=== PATIENT | female | born 1990 | race Caucasian/White ===

== ENCOUNTER 2021-07-06 14:59 | Emergency (ER) | payer OTHER, SELFPAY ==
[2021-07-06 15:00] VITALS: BP 145/98; PULSE 144; RESP 18; TEMP 37.1; O2SAT 98; BMI 34.5
--- NOTE | 2021-07-06 15:39 | EKG12_ITS ---
Test Reason : Blood Pressure : / mmHG Vent. Rate : 109 BPM Atrial Rate : 109 BPM P-R Int : 122 ms QRS Dur : 080 ms QT Int : 326 ms P-R-T Axes : 054 020 008 degrees QTc Int : 439 ms Sinus tachycardia Otherwise normal ECG Confirmed by FARHAT ARANDA, ELBERT ([id number]), editor [employer] EVON KHAN ([id number]) on 07/08/2021 10:05:24 A M Referred By: YAYA Confirmed By:SAIRA DOUGHERTY MD
--- NOTE | 2021-07-06 15:40 | CT_ITS ---
STUDY: CT BRAIN WITHOUT CONTRAST REASON FOR EXAM: Female, 30 years old. Change in Mental Status RADIATION DOSAGE (If Supplied By Facility): CTDIvol = ( 44.99 ) mGy, DLP = ( 745.49 ) mGycm TECHNIQUE: Transaxial CT imaging of the brain was performed without administration of intravenous contrast material. Individualized dose optimization techniques were used for this CT. COMPARISON: No relevant priors. FINDINGS: Normal soft tissue structures. Normal calvarium. Normal size ventricles and extra-axial spaces for the patient''s age. Normal white matter tracts of the cerebral hemispheres. Normal basal ganglia and thalami. Normal brainstem. Normal cerebellum. There is no intracranial hemorrhage. There are no findings of an acute ischemic infarction. Normal visualized paranasal sinuses. CT/Brain/Head without Contrast IMPRESSION: Normal unenhanced CT scan of the brain. Electronically Signed: Nicola Hanson MD at 16:35 EDT , Service support ,
--- NOTE | 2021-07-06 15:42 | EX.ED.VIS.PS ---
HPI <Dr. Joe Rojas MD - Last Filed: 07/06/21 16:57> HPI - Psych History of Present Illness Chief Complaint: Mental Health Informant: patient and spouse/S.O. Narrative Narrative: Patient has a history of psychosis around 2 years ago, she was delusional concerning grandiosity, and then somehow was triggered and started having thoughts of killing her son. She was treated with risperidone, had been in remission. Recently diagnosed with bipolar disorder, has not started any treatment yet. Recently left the state to go visit family in [place], she always has some issues sleeping but there is started becoming a lot worse, where she was only sleeping 2 to 3 hours, she had trouble getting to sleep and then trouble getting back to sleep if she woke up in the middle of the night, and has been acting unusual. Patient is very nonspecific when she is tries to describe her symptoms; she states I am doing my best, just trying to use my coping mechanisms... Takes a deep breath and closes her eyes, and again is very vague and trying to describe what is going on. She denies any hallucinations. Her states that while they were in [place], they went to see someone who did not think she was acutely manic, prescribed her risperidone which she has been taking for 2 days now, has not seemed to help anything including her sleep, and so they came back to [place] to come here and seek further treatment; about 2 hours before arrival, while on the road a song triggered the patient and she started talking like she is now, saying that she may be unsafe to be around herself or others which she also told the triage nurse here. PFSH <Dr. Joe Rojas MD - Last Filed: 07/06/21 16:57> [facility], [facility] Medical History (Updated 07/07/21 @ 00:[address] Clemente Uriostegui MD) Bipolar disorder History of psychosis Home Medications lamotrigine 150 mg PO DAILY 07/06/21 [History Last Taken Unknown] risperidone 2 mg PO QHS 07/06/21 [History Last Taken Unknown] Allergy/AdvReac Type Severity Reaction Status Date / Time haloperidol [From Haldol] AdvReac PT UNSURE Verified 07/06/21 15:04 OF REACTION Social History (Updated 07/06/21 @ 15:[address] Joe Rojas MD) Smoking Status: Never smoker alcohol intake: never substance use type: does not use ROS <Dr. Joe Rojas MD - Last Filed: 07/06/21 16:57> ROS ED Constitutional Constitutional ED: Denies chills or fever(s) Eyes Eyes: Denies change in vision or diplopia ENT ENT ED: Denies rhinorrhea or sore throat Cardiovascular Cardiovascular: Denies chest pain or palpitations Respiratory/Chest Respiratory/Chest: Denies cough or dyspnea Gastrointestinal Gastrointestinal: Denies abdominal pain, diarrhea, nausea or vomiting Genitourinary Genitourinary ED: Denies dysuria or hematuria Musculoskeletal Musculoskeletal: Denies back pain or neck pain Integumentary Denies abscess or rash Neurologic Neurologic: Denies headache(s), paresthesias or weakness Psychiatric Psychiatric: Reports abnormal sleep pattern, behavioral changes, difficulty concentrating and other Details: I may be becoming unsafe to be around myself or others. ; Denies hallucinations, homicidal ideation, suicidal ideation or suicidal thoughts EXAM <Dr. Joe Rojas MD - Last Filed: 07/06/21 16:57> Physical Exam Const Vital Signs: 07/06/21 15:00 07/06/21 17:24 07/06/21 19:44 Temperature 98.7 F Temperature Source Temporal Pulse Rate 144 H 135 H Respiratory Rate 18 18 16 Blood Pressure 145/98 H 166/95 H Blood Pressure Mean 113 118 Pulse Ox 98 99 Oxygen Delivery Method Room Air Room Air 07/06/21 22:40 07/06/21 23:00 07/07/21 00:15 Temperature Temperature Source Pulse Rate 129 H Respiratory Rate 17 17 18 Blood Pressure 124/51 H Blood Pressure Mean 75 Pulse Ox 100 Oxygen Delivery Method Room Air Room Air Room Air 07/07/21 01:00 07/07/21 02:00 07/07/21 03:00 Temperature Temperature Source Pulse Rate Respiratory Rate 16 17 18 Blood Pressure Blood Pressure Mean Pulse Ox Oxygen Delivery Method Room Air Room Air Room Air 07/07/21 04:00 07/07/21 05:00 07/07/21 06:00 Temperature 97.8 F Temperature Source Pulse Rate 114 H Respiratory Rate 18 15 18 Blood Pressure 128/60 H Blood Pressure Mean 82 Pulse Ox 99 Oxygen Delivery Method Room Air Room Air Positive well nourished and well developed General Appearance ED: well developed and NAD HEENT Reports moist mucous membranes normocephalic and atraumatic Eyes PERRL and EOMs intact bilaterally General Eye ED: Negative for scleral icterus Neck no lymphadenopathy and supple Resp normal respiratory effort and clear to auscultation bilaterally Cardio no murmurs Rate: regular rate and tachycardic Rhythm: regular rhythm GI non-tender and non-distended Auscultation: normoactive bowel sounds Palpation: soft Back/Spine no CVA tenderness and normal ROM Extremity normal to inspection General Extremety ED: Negative for edema General Extremity: Negative for edema Neuro oriented x3, CN's II-XII intact bilaterally, no sensory deficits noted and gait normal Sensorium / Orientation: alert Motor Exam: strength 5/5 throughout Psych mental status grossly normal and cooperative Thought Process: disorganized and loose associations Thought Content: No suicidality, No homicidality and No delusion(s) Skin Lesions: no lesions Rashes: no rashes <Dr. Clemente Uriostegui MD - Last Filed: 07/07/21 00:50> Physical Exam Const Vital Signs: 07/06/21 15:00 07/06/21 17:24 07/06/21 19:44 Temperature 98.7 F Temperature Source Temporal Pulse Rate 144 H 135 H Respiratory Rate 18 18 16 Blood Pressure 145/98 H 166/95 H Blood Pressure Mean 113 118 Pulse Ox 98 99 Oxygen Delivery Method Room Air Room Air 07/06/21 22:40 07/06/21 23:00 07/07/21 00:15 Temperature Temperature Source Pulse Rate 129 H Respiratory Rate 17 17 18 Blood Pressure 124/51 H Blood Pressure Mean 75 Pulse Ox 100 Oxygen Delivery Method Room Air Room Air Room Air 07/07/21 01:00 07/07/21 02:00 07/07/21 03:00 Temperature Temperature Source Pulse Rate Respiratory Rate 16 17 18 Blood Pressure Blood Pressure Mean Pulse Ox Oxygen Delivery Method Room Air Room Air Room Air 07/07/21 04:00 07/07/21 05:00 07/07/21 06:00 Temperature 97.8 F Temperature Source Pulse Rate 114 H Respiratory Rate 18 15 18 Blood Pressure 128/60 H Blood Pressure Mean 82 Pulse Ox 99 Oxygen Delivery Method Room Air Room Air <Dr. Rajeev Watkins MD - Last Filed: 07/07/21 06:47> Physical Exam Const Vital Signs: 07/06/21 15:00 07/06/21 17:24 07/06/21 19:44 Temperature 98.7 F Temperature Source Temporal Pulse Rate 144 H 135 H Respiratory Rate 18 18 16 Blood Pressure 145/98 H 166/95 H Blood Pressure Mean 113 118 Pulse Ox 98 99 Oxygen Delivery Method Room Air Room Air 07/06/21 22:40 07/06/21 23:00 07/07/21 00:15 Temperature Temperature Source Pulse Rate 129 H Respiratory Rate 17 17 18 Blood Pressure 124/51 H Blood Pressure Mean 75 Pulse Ox 100 Oxygen Delivery Method Room Air Room Air Room Air 07/07/21 01:00 07/07/21 02:00 07/07/21 03:00 Temperature Temperature Source Pulse Rate Respiratory Rate 16 17 18 Blood Pressure Blood Pressure Mean Pulse Ox Oxygen Delivery Method Room Air Room Air Room Air 07/07/21 04:00 07/07/21 05:00 07/07/21 06:00 Temperature 97.8 F Temperature Source Pulse Rate 114 H Respiratory Rate 18 15 18 Blood Pressure 128/60 H Blood Pressure Mean 82 Pulse Ox 99 Oxygen Delivery Method Room Air Room Air MDM <Dr. Joe Rojas MD - Last Filed: 07/06/21 16:57> [facility] MDM Narrative Medical decision making narrative: Patient has a minor leukocytosis, and urinalysis that is suspicious for infection however she has no urinary symptoms or fevers or other symptoms of infection. Therefore this will be sent for a culture, and we will hold off on treatment unless the culture returns positive. Otherwise she is medically cleared. Discussed with social work/crisis for further evaluation. Lab Data Attestation: I reviewed the patient's lab results. Labs: Laboratory Results - last 24 hr 07/06/21 07/06/21 07/06/21 15:47 15:47 15:56 WBC 12.1 H RBC 4.57 Hgb 13.3 Hct 40.3 MCV 88.2 MCH 29.1 MCHC 33.0 RDW Std Deviation 42.4 RDW Coeff of Evelin 13.1 Plt Count 275 MPV 9.9 Immature Gran % (Auto) 0.300 Neut % (Auto) 84.2 H Lymph % (Auto) 9.3 L [place] % (Auto) 5.7 Eos % (Auto) 0.3 Baso % (Auto) 0.2 Absolute Neuts (auto) 10.2 H Absolute Lymphs (auto) 1.12 Nucleated RBC % 0 Sodium Potassium Chloride Carbon Dioxide Anion Gap BUN Creatinine Estim Creat Clear Calc Est GFR (MDRD) Af Amer Est GFR (MDRD) Non-Af BUN/Creatinine Ratio Glucose Lactic Acid Calcium Total Bilirubin AST ALT Alkaline Phosphatase Total Protein Albumin Globulin Albumin/Globulin Ratio TSH Serum , Qual Urine Color Yellow Urine Clarity Clear Urine pH 6.5 Ur Specific [place] 1.010 Urine Protein Negative Urine Glucose (UA) Normal Urine Ketones Negative Urine Occult Blood 50 H Urine Nitrite Negative Urine Bilirubin Negative Urine Urobilinogen Normal Ur Leukocyte Esterase 500 H Urine RBC 0 SEEN Urine WBC 10-25 SEEN Ur Squamous Epith Cells 0-5 SEEN Urine Bacteria 1+ Urine Mucus 0 SEEN Urine Opiates Screen NEGATIVE Urine Methadone Screen NEGATIVE Ur Barbiturates Screen NEGATIVE Ur Phencyclidine Scrn NEGATIVE Ur Amphetamines Screen NEGATIVE U Methamphetamin-MDMA NEGATIVE U Benzodiazepines Scrn NEGATIVE Urine Cocaine Screen NEGATIVE U Cannabinoids Screen NEGATIVE Ur Drug Screen Comment Ethyl Alcohol 07/06/21 07/06/21 07/06/21 15:56 15:56 15:56 WBC RBC Hgb Hct MCV MCH MCHC RDW Std Deviation RDW Coeff of Evelin Plt Count MPV Immature Gran % (Auto) Neut % (Auto) Lymph % (Auto) [place] % (Auto) Eos % (Auto) Baso % (Auto) Absolute Neuts (auto) Absolute Lymphs (auto) Nucleated RBC % Sodium 137 Potassium 3.5 Chloride 104 Carbon Dioxide 26.0 Anion Gap 7 BUN 9 Creatinine 0.58 Estim Creat Clear Calc 117.32 Est GFR (MDRD) Af Amer 156 Est GFR (MDRD) Non-Af 129 BUN/Creatinine Ratio 15.5 Glucose 100 Lactic Acid Calcium 8.9 Total Bilirubin 0.30 AST 13 L ALT 17 Alkaline Phosphatase 87 Total Protein 8.3 H Albumin 3.8 Globulin 4.5 H Albumin/Globulin Ratio 0.8 L TSH 1.04 Serum , Qual NEGATIVE Urine Color Urine Clarity Urine pH Ur Specific [place] Urine Protein Urine Glucose (UA) Urine Ketones Urine Occult Blood Urine Nitrite Urine Bilirubin Urine Urobilinogen Ur Leukocyte Esterase Urine RBC Urine WBC Ur Squamous Epith Cells Urine Bacteria Urine Mucus Urine Opiates Screen Urine Methadone Screen Ur Barbiturates Screen Ur Phencyclidine Scrn Ur Amphetamines Screen U Methamphetamin-MDMA U Benzodiazepines Scrn Urine Cocaine Screen U Cannabinoids Screen Ur Drug Screen Comment Ethyl Alcohol 9.0 07/07/21 07/07/21 00:40 00:55 WBC 9.0 RBC 4.33 Hgb 12.7 Hct 38.2 MCV 88.2 MCH 29.3 MCHC 33.2 RDW Std Deviation 42.2 RDW Coeff of Evelin 13.1 Plt Count 275 MPV 9.9 Immature Gran % (Auto) 0.200 Neut % (Auto) 73.5 H Lymph % (Auto) 18.5 L [place] % (Auto) 7.5 Eos % (Auto) 0.1 Baso % (Auto) 0.2 Absolute Neuts (auto) 6.6 Absolute Lymphs (auto) 1.66 Nucleated RBC % 0 Sodium Potassium Chloride Carbon Dioxide Anion Gap BUN Creatinine Estim Creat Clear Calc Est GFR (MDRD) Af Amer Est GFR (MDRD) Non-Af BUN/Creatinine Ratio Glucose Lactic Acid 0.9 Calcium Total Bilirubin AST ALT Alkaline Phosphatase Total Protein Albumin Globulin Albumin/Globulin Ratio TSH Serum , Qual Urine Color Urine Clarity Urine pH Ur Specific [place] Urine Protein Urine Glucose (UA) Urine Ketones Urine Occult Blood Urine Nitrite Urine Bilirubin Urine Urobilinogen Ur Leukocyte Esterase Urine RBC Urine WBC Ur Squamous Epith Cells Urine Bacteria Urine Mucus Urine Opiates Screen Urine Methadone Screen Ur Barbiturates Screen Ur Phencyclidine Scrn Ur Amphetamines Screen U Methamphetamin-MDMA U Benzodiazepines Scrn Urine Cocaine Screen U Cannabinoids Screen Ur Drug Screen Comment Ethyl Alcohol Radiography Diagnostic Testing: Radiology Impression Brain CT 07/06/21 15:40 IMPRESSION: Normal unenhanced CT scan of the brain. Electronically Signed: Nicola Hanson MD at 16:35 EDT , Service support , EKG Initial EKG: Attestation: I personally reviewed and interpreted this EKG as follows: Interpretation: No Acute Injury Pattern and Sinus Tachycardia (109) Comments: otherwise normal EKG <Dr. Clemente Uriostegui MD - Last Filed: 07/07/21 00:50> [facility] Narrative Medical decision making narrative: Patient demonstrating hypomanic type symptoms. She has history of bipolar depressive disorder. She has been uncooperative. She attempted to injure herself. She had to be medicated. Because of allergy to Haldol she was initially administered Geodon and Versed. After attempts to harm her self she was medicated with Ativan at the time of this addendum/note 0030 patient is sleeping. Patient is awake. Her thought process is disorganized. Since she has a UTI not able to state with 100% certainty that this is not due to an infectious encephalopathy. This may be psychiatric however with an elevated white count will treat for UTI and have her reevaluated later this morning to determine if she is medically cleared for hospitalization at a psychiatric facility. Case was discussed with Dr. Grant the hospitalist. He is in agreement that this most likely represents a psychiatric illness with a simple UTI and not necessary infectious encephalopathy. Plan is 1 g of Rocephin. He will reevaluate patient at 0500. If she is mentating well remains hemodynamically stable he will medically clear her for transport to psychiatric hospital and prescribe p.o. antibiotics to treat her urinary tract infection Lab Data Attestation: I reviewed the patient's lab results. Lab results narrative: White count is elevated which is nondiagnostic. Urine reveals pyuria and bacteria consistent with infection. Will treat with Macrobid this would not explain her behavior. Tox screen is no get it. Serum test is negative. Labs: Laboratory Results - last 24 hr 07/06/21 07/06/21 07/06/21 15:47 15:47 15:56 WBC 12.1 H RBC 4.57 Hgb 13.3 Hct 40.3 MCV 88.2 MCH 29.1 MCHC 33.0 RDW Std Deviation 42.4 RDW Coeff of Evelin 13.1 Plt Count 275 MPV 9.9 Immature Gran % (Auto) 0.300 Neut % (Auto) 84.2 H Lymph % (Auto) 9.3 L [place] % (Auto) 5.7 Eos % (Auto) 0.3 Baso % (Auto) 0.2 Absolute Neuts (auto) 10.2 H Absolute Lymphs (auto) 1.12 Nucleated RBC % 0 Sodium Potassium Chloride Carbon Dioxide Anion Gap BUN Creatinine Estim Creat Clear Calc Est GFR (MDRD) Af Amer Est GFR (MDRD) Non-Af BUN/Creatinine Ratio Glucose Lactic Acid Calcium Total Bilirubin AST ALT Alkaline Phosphatase Total Protein Albumin Globulin Albumin/Globulin Ratio TSH Serum , Qual Urine Color Yellow Urine Clarity Clear Urine pH 6.5 Ur Specific [place] 1.010 Urine Protein Negative Urine Glucose (UA) Normal Urine Ketones Negative Urine Occult Blood 50 H Urine Nitrite Negative Urine Bilirubin Negative Urine Urobilinogen Normal Ur Leukocyte Esterase 500 H Urine RBC 0 SEEN Urine WBC 10-25 SEEN Ur Squamous Epith Cells 0-5 SEEN Urine Bacteria 1+ Urine Mucus 0 SEEN Urine Opiates Screen NEGATIVE Urine Methadone Screen NEGATIVE Ur Barbiturates Screen NEGATIVE Ur Phencyclidine Scrn NEGATIVE Ur Amphetamines Screen NEGATIVE U Methamphetamin-MDMA NEGATIVE U Benzodiazepines Scrn NEGATIVE Urine Cocaine Screen NEGATIVE U Cannabinoids Screen NEGATIVE Ur Drug Screen Comment Ethyl Alcohol 07/06/21 07/06/21 07/06/21 15:56 15:56 15:56 WBC RBC Hgb Hct MCV MCH MCHC RDW Std Deviation RDW Coeff of Evelin Plt Count MPV Immature Gran % (Auto) Neut % (Auto) Lymph % (Auto) [place] % (Auto) Eos % (Auto) Baso % (Auto) Absolute Neuts (auto) Absolute Lymphs (auto) Nucleated RBC % Sodium 137 Potassium 3.5 Chloride 104 Carbon Dioxide 26.0 Anion Gap 7 BUN 9 Creatinine 0.58 Estim Creat Clear Calc 117.32 Est GFR (MDRD) Af Amer 156 Est GFR (MDRD) Non-Af 129 BUN/Creatinine Ratio 15.5 Glucose 100 Lactic Acid Calcium 8.9 Total Bilirubin 0.30 AST 13 L ALT 17 Alkaline Phosphatase 87 Total Protein 8.3 H Albumin 3.8 Globulin 4.5 H Albumin/Globulin Ratio 0.8 L TSH 1.04 Serum , Qual NEGATIVE Urine Color Urine Clarity Urine pH Ur Specific [place] Urine Protein Urine Glucose (UA) Urine Ketones Urine Occult Blood Urine Nitrite Urine Bilirubin Urine Urobilinogen Ur Leukocyte Esterase Urine RBC Urine WBC Ur Squamous Epith Cells Urine Bacteria Urine Mucus Urine Opiates Screen Urine Methadone Screen Ur Barbiturates Screen Ur Phencyclidine Scrn Ur Amphetamines Screen U Methamphetamin-MDMA U Benzodiazepines Scrn Urine Cocaine Screen U Cannabinoids Screen Ur Drug Screen Comment Ethyl Alcohol 9.0 07/07/21 07/07/21 00:40 00:55 WBC 9.0 RBC 4.33 Hgb 12.7 Hct 38.2 MCV 88.2 MCH 29.3 MCHC 33.2 RDW Std Deviation 42.2 RDW Coeff of Evelin 13.1 Plt Count 275 MPV 9.9 Immature Gran % (Auto) 0.200 Neut % (Auto) 73.5 H Lymph % (Auto) 18.5 L [place] % (Auto) 7.5 Eos % (Auto) 0.1 Baso % (Auto) 0.2 Absolute Neuts (auto) 6.6 Absolute Lymphs (auto) 1.66 Nucleated RBC % 0 Sodium Potassium Chloride Carbon Dioxide Anion Gap BUN Creatinine Estim Creat Clear Calc Est GFR (MDRD) Af Amer Est GFR (MDRD) Non-Af BUN/Creatinine Ratio Glucose Lactic Acid 0.9 Calcium Total Bilirubin AST ALT Alkaline Phosphatase Total Protein Albumin Globulin Albumin/Globulin Ratio TSH Serum , Qual Urine Color Urine Clarity Urine pH Ur Specific [place] Urine Protein Urine Glucose (UA) Urine Ketones Urine Occult Blood Urine Nitrite Urine Bilirubin Urine Urobilinogen Ur Leukocyte Esterase Urine RBC Urine WBC Ur Squamous Epith Cells Urine Bacteria Urine Mucus Urine Opiates Screen Urine Methadone Screen Ur Barbiturates Screen Ur Phencyclidine Scrn Ur Amphetamines Screen U Methamphetamin-MDMA U Benzodiazepines Scrn Urine Cocaine Screen U Cannabinoids Screen Ur Drug Screen Comment Ethyl Alcohol Radiography Diagnostic Testing: Radiology Impression Brain CT 07/06/21 15:40 IMPRESSION: Normal unenhanced CT scan of the brain. Electronically Signed: Nicola Hanson MD at 16:35 EDT , Service support , <Dr. Rajeev Watkins MD - Last Filed: 07/07/21 06:47> [facility] MDM Narrative Medical decision making narrative: Dr. Reyna is also seen in follow this patient. Repeat white count is normal. Lactate is normal. She does not have any symptomatology of UTI. She has history of psychiatric illness. This does appear to be more psychiatric than medical. He is comfortable with her being medically cleared for psychiatric evaluation and admission. He feels without any symptoms and her totality results, the i.e. the Rocephin should be appropriate treatment for her. Patient is excepted for psychiatric transfer. Lab Data Attestation: I reviewed the patient's lab results. Labs: Laboratory Results - last 24 hr 07/06/21 07/06/21 07/06/21 15:47 15:47 15:56 WBC 12.1 H RBC 4.57 Hgb 13.3 Hct 40.3 MCV 88.2 MCH 29.1 MCHC 33.0 RDW Std Deviation 42.4 RDW Coeff of Evelin 13.1 Plt Count 275 MPV 9.9 Immature Gran % (Auto) 0.300 Neut % (Auto) 84.2 H Lymph % (Auto) 9.3 L [place] % (Auto) 5.7 Eos % (Auto) 0.3 Baso % (Auto) 0.2 Absolute Neuts (auto) 10.2 H Absolute Lymphs (auto) 1.12 Nucleated RBC % 0 Sodium Potassium Chloride Carbon Dioxide Anion Gap BUN Creatinine Estim Creat Clear Calc Est GFR (MDRD) Af Amer Est GFR (MDRD) Non-Af BUN/Creatinine Ratio Glucose Lactic Acid Calcium Total Bilirubin AST ALT Alkaline Phosphatase Total Protein Albumin Globulin Albumin/Globulin Ratio TSH Serum , Qual Urine Color Yellow Urine Clarity Clear Urine pH 6.5 Ur Specific [place] 1.010 Urine Protein Negative Urine Glucose (UA) Normal Urine Ketones Negative Urine Occult Blood 50 H Urine Nitrite Negative Urine Bilirubin Negative Urine Urobilinogen Normal Ur Leukocyte Esterase 500 H Urine RBC 0 SEEN Urine WBC 10-25 SEEN Ur Squamous Epith Cells 0-5 SEEN Urine Bacteria 1+ Urine Mucus 0 SEEN Urine Opiates Screen NEGATIVE Urine Methadone Screen NEGATIVE Ur Barbiturates Screen NEGATIVE Ur Phencyclidine Scrn NEGATIVE Ur Amphetamines Screen NEGATIVE U Methamphetamin-MDMA NEGATIVE U Benzodiazepines Scrn NEGATIVE Urine Cocaine Screen NEGATIVE U Cannabinoids Screen NEGATIVE Ur Drug Screen Comment Ethyl Alcohol 07/06/21 07/06/21 07/06/21 15:56 15:56 15:56 WBC RBC Hgb Hct MCV MCH MCHC RDW Std Deviation RDW Coeff of Evelin Plt Count MPV Immature Gran % (Auto) Neut % (Auto) Lymph % (Auto) [place] % (Auto) Eos % (Auto) Baso % (Auto) Absolute Neuts (auto) Absolute Lymphs (auto) Nucleated RBC % Sodium 137 Potassium 3.5 Chloride 104 Carbon Dioxide 26.0 Anion Gap 7 BUN 9 Creatinine 0.58 Estim Creat Clear Calc 117.32 Est GFR (MDRD) Af Amer 156 Est GFR (MDRD) Non-Af 129 BUN/Creatinine Ratio 15.5 Glucose 100 Lactic Acid Calcium 8.9 Total Bilirubin 0.30 AST 13 L ALT 17 Alkaline Phosphatase 87 Total Protein 8.3 H Albumin 3.8 Globulin 4.5 H Albumin/Globulin Ratio 0.8 L TSH 1.04 Serum , Qual NEGATIVE Urine Color Urine Clarity Urine pH Ur Specific [place] Urine Protein Urine Glucose (UA) Urine Ketones Urine Occult Blood Urine Nitrite Urine Bilirubin Urine Urobilinogen Ur Leukocyte Esterase Urine RBC Urine WBC Ur Squamous Epith Cells Urine Bacteria Urine Mucus Urine Opiates Screen Urine Methadone Screen Ur Barbiturates Screen Ur Phencyclidine Scrn Ur Amphetamines Screen U Methamphetamin-MDMA U Benzodiazepines Scrn Urine Cocaine Screen U Cannabinoids Screen Ur Drug Screen Comment Ethyl Alcohol 9.0 07/07/21 07/07/21 00:40 00:55 WBC 9.0 RBC 4.33 Hgb 12.7 Hct 38.2 MCV 88.2 MCH 29.3 MCHC 33.2 RDW Std Deviation 42.2 RDW Coeff of Evelin 13.1 Plt Count 275 MPV 9.9 Immature Gran % (Auto) 0.200 Neut % (Auto) 73.5 H Lymph % (Auto) 18.5 L [place] % (Auto) 7.5 Eos % (Auto) 0.1 Baso % (Auto) 0.2 Absolute Neuts (auto) 6.6 Absolute Lymphs (auto) 1.66 Nucleated RBC % 0 Sodium Potassium Chloride Carbon Dioxide Anion Gap BUN Creatinine Estim Creat Clear Calc Est GFR (MDRD) Af Amer Est GFR (MDRD) Non-Af BUN/Creatinine Ratio Glucose Lactic Acid 0.9 Calcium Total Bilirubin AST ALT Alkaline Phosphatase Total Protein Albumin Globulin Albumin/Globulin Ratio TSH Serum , Qual Urine Color Urine Clarity Urine pH Ur Specific [place] Urine Protein Urine Glucose (UA) Urine Ketones Urine Occult Blood Urine Nitrite Urine Bilirubin Urine Urobilinogen Ur Leukocyte Esterase Urine RBC Urine WBC Ur Squamous Epith Cells Urine Bacteria Urine Mucus Urine Opiates Screen Urine Methadone Screen Ur Barbiturates Screen Ur Phencyclidine Scrn Ur Amphetamines Screen U Methamphetamin-MDMA U Benzodiazepines Scrn Urine Cocaine Screen U Cannabinoids Screen Ur Drug Screen Comment Ethyl Alcohol Radiography Diagnostic Testing: Radiology Impression Brain CT 07/06/21 15:40 IMPRESSION: Normal unenhanced CT scan of the brain. Electronically Signed: Nicola Hanson MD at 16:35 EDT , Service support , Discharge Plan Dx/Rx/DC Orders Clinical Impression: Disorganized thinking, Urinary tract infection, Encephalopathy acute, Injury, self-inflicted Disposition Disposition: Acute Care Hospital [facility]
[2021-07-06 16:05] LABS: Mucous, Urine 0 SEEN /hpf (<or=2+); Red Blood Cells-Urine 0 SEEN /hpf (0-5)
[2021-07-06 16:08] LABS: Absolute Lymphocyte Count 1.12 X10^3/uL (0.83-4.51); Absolute Neutrophil Count 10.2 X10^3/uL (2.0-7.7); Basophil# 0.02 X10^3/uL; Basophil% 0.2 % (0-1); Eosinophil# 0.04 X10^3/uL; Eosinophils% 0.3 % (0-5); Hematocrit 40.3 % (37-47); Hemoglobin 13.3 g/dL (12.0-15.0); Lymphocyte # 1.12 X10^3/ul (0.83-4.51); Lymphocyte % 9.3 % (19-41); Mean Corpuscular Hgb 29.1 pg (27.0-32.0); Mean Corpuscular Volume 88.2 fL (81-99); Mean Platelet Vol. 9.9 fl (6.2-12.0); Monocyte# 0.69 X10^3/uL; Monocyte% 5.7 % (0-10); NRBC Flagged by Analyzer 0 % (0-5); Neutrophil # 10.18 X10^3/uL (2.7-7.7); Neutrophil % 84.2 % (47-70); Platelet Count 275 K/mm3 (150-450); RBC Distribution Width CV 13.1 % (11.6-14.6); RBC Distribution Width SD 42.4 fl (35.1-43.9); Red Blood Count 4.57 M/mm3 (4.2-5.4); White Blood Count 12.1 K/mm3 (4.4-11.0)
[2021-07-06 16:16] LABS: Color, Urine Yellow (Yellow); Glucose, Dipstick Normal (Normal); Ketone-Dipstick Negative (Negative); Leukocyte Esterase-Dipstick 500 /ul (Negative); Nitrite-Dipstick Negative (Negative); Occult Blood-Urine 50 /ul (Negative); Protein-Dipstick Negative (Negative); Urine Bilirubin Dipstick Negative (Negative); Urine Clarity Clear (Clear); Urine Urobilinogen Normal (Normal); Urine pH 6.5 (5.0 - 8.0)
[2021-07-06 16:21] LABS: Internal QC Validated? YES +Cl - CLEAR BKGD; Pregnancy, Serum, hCG Quali. NEGATIVE Negative
[2021-07-06 16:24] LABS: White Blood Cells 10-25 SEEN /hpf (0-5)
[2021-07-06 16:25] LABS: Bacteria 1+ /hpf (None Seen); Squamous Epithelial Cells - UA 0-5 SEEN /hpf (5-10)
[2021-07-06 16:26] LABS: Amphetamine Urine VISTA NEGATIVE (<1000 ng/mL); Barbiturate Urine VISTA NEGATIVE (< 200 ng/mL); Benzodiazepine Urine VISTA NEGATIVE (< 200 ng/mL); Cocaine Urine VISTA NEGATIVE (< 300 ng/mL); Ecstacy Urine VISTA NEGATIVE (< 500 ng/mL); Methadone Urine VISTA NEGATIVE (< 300 ng/mL); PCP Urine VISTA NEGATIVE (< 25 ng/mL); THC Urine VISTA NEGATIVE (< 50 ng/mL); Vista UDS pH Range 6
[2021-07-06 16:33] LABS: ALB/GLOB Ratio 0.8 RATIO (0.9-2.4); AST(SGOT) 13 U/L (15-37); Alanine Aminotransfer ALT/SGPT 17 U/L (13-56); Albumin, Serum 3.8 g/dL (3.2-5.0); Alkaline Phosphatase 87 U/L (45-117); Anion Gap 7 (5-15); BUN 9 mg/dL (7-18); BUN/Creat Ratio 15.5 RATIO (10-20); Calcium,Total 8.9 mg/dL (8.5-10.1); Chloride 104 mmol/L (98-107); Creatinine, Serum 0.58 mg/dL (0.55-1.02); EST Glomerular Filtration Rate 129 mL/min (>60); Est Glom Filt Rate - Afr Amer 156 mL/min (>60); Estimated Creatinine Clearance 117.32 ml/min; Globulin 4.5 g/dL (2.2-4.2); Glucose 100 mg/dL (74-106); Potassium 3.5 mmol/L (3.5-5.1); Protein, Total 8.3 g/dL (6.4-8.2); Sodium Level 137 mmol/L (136-145); Thyroid Stim Hormone (TSH) 1.04 uIU/mL (0.358-3.74)
[2021-07-06 17:24] VITALS: BP 166/95; PULSE 135; RESP 18; O2SAT 99
--- NOTE | 2021-07-06 18:17 | CM.ED ---
SOCIAL WORK ASSESSMENT Referral Source: Dr. Rojas Reason for Consult: Mental Health Chief Compliant: Patient presents to [facility] ER for mental health evaluation. Marital/Social History: Living Situation: Home with and 2-year-old son. 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 Patient is treated with medications. Triggers/Stressors: ?Everything? Coping Skills: breathing, coloring Abuse Issues: Patient denies any history of abuse. Substance Abuse History: Patient denies any history of substance abuse. Risk to Self/Others: Suicidal- Patient denies any current suicidal ideation. Patient reports in the past had thoughts of ?killing myself and my son.? Mental Status Exam: Orientation- A&Ox3 Memory: fair Appearance/General Behavior: disheveled, anxious Mood/Affect: depressed, bizarre Communication Pattern: rambling, rapid Thought Process: disorganized thoughts General Intellectual Functioning: Average Judgement: poor Insight: poor Assessment: Patient presents to [facility] ER with her for mental health evaluation. Patient with history of Post- psychosis. Patient with disorganized thoughts, rambling and rapid speech, inability to focus. Patient reports insomnia and issues with eating. Patient states has slept ?few hours here and there.? Patient unable to care for self or child. Patient states has been hospitalized in the past due to psychosis and suicidal/homicidal ideation. in agreement with plan for hospitalization. Collaboration with Dr. Rojas. Boomer Slip completed. Patient requires hospitalization for stabilization. Plan: Referral to inpatient psych for stabilization Neri Hardy MSW, CLIENT SUPPORT ADMINISTRATOR
--- NOTE | 2021-07-06 18:17 | CM.ED ---
SOCIAL WORK Referral called and faxed to [facility]. Pending acceptance at this time. Neri Hardy, MERCHANT BANKER, RENOVATION PLANT SUPERVISOR
--- NOTE | 2021-07-06 19:29 | CM.ED ---
SOCIAL WORK Patient accepted to [facility] by Dr. Vincent to [address]. Facility requesting transport be set up for 2am. Nurse to call report to [phone]. D. MARIBEL Hardy, VEGETABLE COOK
[2021-07-06 19:44] VITALS: RESP 16
[2021-07-06] MEDS: Ziprasidone IM 20 MG/ML VIAL IM (20:18)
[2021-07-06] MEDS: Midazolam 2 MG/2 ML Syringe IM (20:18)
--- NOTE | 2021-07-06 21:30 | ED.RN ---
PT COMING OUT OF ROOM, APPEARS MORE AGITATED, PACING AND WRINGING HANDS. PT AGREES SHE NEEDS MEDS TO HELP DE-ESCALATE ME. NOTIFIED.
[2021-07-06] MEDS: LORazepam 2 MG/ML Syringe IM (21:41)
[2021-07-06 22:40] VITALS: RESP 17
[2021-07-06 23:00] VITALS: RESP 17
--- NOTE | 2021-07-06 23:35 | ED.RN ---
TRANSPORT ARRANGED WITH A 0630 PICK-UP TIME
[2021-07-07] VITALS (7 sets, daily range): BP systolic 124–128; BP diastolic 51–60; PULSE 114–129; RESP 15–18; TEMP 36.6; O2SAT 99–100
[2021-07-07 00:59] LABS: Absolute Lymphocyte Count 1.66 X10^3/uL (0.83-4.51); Absolute Neutrophil Count 6.6 X10^3/uL (2.0-7.7); Basophil# 0.02 X10^3/uL; Basophil% 0.2 % (0-1); Eosinophil# 0.01 X10^3/uL; Eosinophils% 0.1 % (0-5); Hematocrit 38.2 % (37-47); Hemoglobin 12.7 g/dL (12.0-15.0); Lymphocyte # 1.66 X10^3/ul (0.83-4.51); Lymphocyte % 18.5 % (19-41); Mean Corp Hgb Conc 33.2 g/dL (32-36); Mean Corpuscular Hgb 29.3 pg (27.0-32.0); Mean Corpuscular Volume 88.2 fL (81-99); Mean Platelet Vol. 9.9 fl (6.2-12.0); Monocyte# 0.67 X10^3/uL; Monocyte% 7.5 % (0-10); NRBC Flagged by Analyzer 0 % (0-5); Neutrophil % 73.5 % (47-70); Platelet Count 275 K/mm3 (150-450); RBC Distribution Width CV 13.1 % (11.6-14.6); RBC Distribution Width SD 42.2 fl (35.1-43.9); Red Blood Count 4.33 M/mm3 (4.2-5.4)
[2021-07-07 01:20] LABS: Lactic Acid 0.9 mmol/L (0.4-1.9)
[2021-07-07] MEDS: Ceftriaxone 1 GM/50 ML BAG IV (01:22)
[2021-07-07] MEDS: LORazepam 1 MG Tablet PO (01:34)
--- NOTE | 2021-07-07 02:28 | PCM.HOSP.N ---
Hospitalist Note Patient was seen and examined at the request of the ER physician, Dr. Uriostegui. 30-year-old female with diagnosis of bipolar disorder, psychosis in 2019 when asked to evaluate for concern of UTI. Patient denies dysuria, burning micturition, increased frequency, urgency or new lower urinary tract symptoms. Does not have history of recurrent UTI. No suprapubic pain. UA shows WC 10-25 cells, LE 500, nitrite negative and urine bacteria 1+. Patient had leukocytosis 12,000 which repeat CBC shows WBC 9000. No fever chills, tachypnea or hypoxia or features of sepsis. Patient heart rate was 144 now 130. The cause of tachycardia unclear but possible related to restlessness/agitation/hyperadrenergic state. Urine culture and blood culture are pending. No suprapubic tenderness. Empirically, patient got 1 dose of IV ceftriaxone. Assessment and plan At most, I think patient might have asymptomatic bacteriuria. She does not fulfill criteria for UTI therefore antibiotic is not indicated. Follow-up urine culture and blood culture. Patient is medically stable for transfer to inpatient psych facility and further management for bipolar disorder Visit Charges Inpatient E&M: 55160 Subs Hosp L2
--- NOTE | 2021-07-07 03:38 | ED.RN ---
report called to saray
[2021-07-07] MEDS: Ziprasidone IM 20 MG/ML VIAL IM (04:01)
--- NOTE | 2021-07-07 06:51 | NURSING ---
Pt threw herself on the floor. no injury noted. Pt asst back to ems cot.
== END 2021-07-07 06:49 ==
PROVIDERS: Emergency Medicine; Internal Medicine; Emergency Provider Emergency Medicine; PCP Family Medicine
DX: G93.40 Encephalopathy, unspecified (principal); F31.9 Bipolar disorder, unspecified; N39.0 Urinary tract infection, site not specified; T14.90XA Injury, unspecified, initial encounter; Z79.899 Other long term (current) drug therapy; X83.8XXA Intentional self-harm by other specified means, initial encounter; Y93.89 Activity, other specified; Y92.230 Patient room in hospital as the place of occurrence of the external cause; Y99.8 Other external cause status
CPT/HCPCS: 70450; 80053; 80307; 81001; 82077; 83605; 84443; 84703; 85025; 87040; 87086; 87088; 87426; 93005; 96365; 96372; 99285; J7050; A4216; J3486

== ENCOUNTER 2021-07-20 00:46 | Emergency (ER) | payer OTHER, SELFPAY ==
[2021-07-20] VITALS (9 sets, daily range): BP systolic 124–162; BP diastolic 65–84; PULSE 72–145; RESP 16–18; TEMP 36.2–37.1; O2SAT 96–99; BMI 33.8
--- NOTE | 2021-07-20 01:18 | EKG12_ITS ---
Test Reason : [facility] Blood Pressure : / mmHG Vent. Rate : 091 BPM Atrial Rate : 091 BPM P-R Int : 142 ms QRS Dur : 080 ms QT Int : 372 ms P-R-T Axes : 028 015 010 degrees QTc Int : 457 ms Normal sinus rhythm Normal ECG Confirmed by WILLIAM ARANDA, MARCOS ([id number]), turnaround engineer EVON KHAN ([id number]) on 07/21/2021 10:09:32 AM Referred By: ELOISA Confirmed By:MARCOS THOMAS MD
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
[2021-07-20] MEDS: LORazepam 2 MG/ML Syringe IM (01:41)
[2021-07-20] MEDS: Ziprasidone IM 20 MG/ML VIAL IM (01:41)
[2021-07-20] MEDS: DiphenhydrAMINE 50 MG/ML Syringe IM (01:41)
[2021-07-20 02:44] LABS: Internal QC Validated? YES +Cl - CLEAR BKGD; Pregnancy, Serum, hCG Quali. NEGATIVE Negative
[2021-07-20 02:45] LABS: BUN 9 mg/dL (7-18); Creatinine, Serum 0.48 mg/dL (0.55-1.02); Estimated Creatinine Clearance 141.77 ml/min; Glucose 98 mg/dL (74-106)
[2021-07-20 02:46] LABS: Absolute Lymphocyte Count 1.78 X10^3/uL (0.83-4.51); Absolute Neutrophil Count 3.9 X10^3/uL (2.0-7.7); Anion Gap 6 (5-15); BUN/Creat Ratio 18.6 RATIO (10-20); Basophil# 0.04 X10^3/uL; Basophil% 0.6 % (0-1); Calcium,Total 8.3 mg/dL (8.5-10.1); Chloride 113 mmol/L (98-107); EST Glomerular Filtration Rate 159 mL/min (>60); Eosinophil# 0.31 X10^3/uL; Eosinophils% 4.6 % (0-5); Est Glom Filt Rate - Afr Amer 192 mL/min (>60); Hematocrit 37.9 % (37-47); Hemoglobin 12.3 g/dL (12.0-15.0); Lymphocyte # 1.78 X10^3/ul (0.83-4.51); Lymphocyte % 26.6 % (19-41); Mean Corp Hgb Conc 32.5 g/dL (32-36); Mean Corpuscular Hgb 28.7 pg (27.0-32.0); Mean Corpuscular Volume 88.6 fL (81-99); Mean Platelet Vol. 10.2 fl (6.2-12.0); Monocyte# 0.67 X10^3/uL; NRBC Flagged by Analyzer 0 % (0-5); Neutrophil # 3.89 X10^3/uL (2.7-7.7); Neutrophil % 58.1 % (47-70); Platelet Count 275 K/mm3 (150-450); Potassium 2.9 mmol/L (3.5-5.1); RBC Distribution Width CV 13.8 % (11.6-14.6); RBC Distribution Width SD 44.5 fl (35.1-43.9); Red Blood Count 4.28 M/mm3 (4.2-5.4); Sodium Level 146 mmol/L (136-145); White Blood Count 6.7 K/mm3 (4.4-11.0)
[2021-07-20 02:47] LABS: Amphetamine Urine VISTA NEGATIVE (<1000 ng/mL); Barbiturate Urine VISTA NEGATIVE (< 200 ng/mL); Benzodiazepine Urine VISTA NEGATIVE (< 200 ng/mL); Cocaine Urine VISTA NEGATIVE (< 300 ng/mL); Ecstacy Urine VISTA NEGATIVE (< 500 ng/mL); Methadone Urine VISTA NEGATIVE (< 300 ng/mL); PCP Urine VISTA NEGATIVE (< 25 ng/mL); THC Urine VISTA NEGATIVE (< 50 ng/mL); Vista UDS pH Range 6
[2021-07-20 02:51] LABS: Alcohol, Blood (Medical)-Serum < 3.0 mg/dL
[2021-07-20] MEDS: Potassium Chloride Oral Soln 20 MEQ/15 ML UDC 40 MEQ PO (04:11)
--- NOTE | 2021-07-20 08:51 | NURSING ---
CALLED CRISIS, TALKED TO JOSE ALBERTO CHART SENT TO [facility], THEY ARE REVIEWING IT
[2021-07-20] MEDS: busPIRone 5 MG Tablet 10 MG PO (10:20)
[2021-07-20] MEDS: ARIPiprazole 5 MG Tablet 15 MG PO (10:20)
[2021-07-20] MEDS: OXcarbazepine 600 MG Tablet PO (10:20)
--- NOTE | 2021-07-20 10:55 | NURSING ---
FAXED CURRENT VITALS TO [facility]
--- NOTE | 2021-07-20 11:22 | NURSING ---
CALLED TOMMY, TALKED TO SUSU. ETA IS 30 MIN
--- NOTE | 2021-07-20 12:55 | ED.RN ---
1155 atttempted to clal report to [facility]. disconnected. called back and they said busy unable to take call. put me through again and no answer [id number] attempted to call report. operating not answering after waiting 5 minutes.
== END 2021-07-20 11:52 ==
PROVIDERS: Emergency Provider Emergency Medicine; PCP Family Medicine
DX: F23 Brief psychotic disorder (principal); F31.9 Bipolar disorder, unspecified; Z79.899 Other long term (current) drug therapy
CPT/HCPCS: 80048; 80307; 82077; 84703; 85025; 87426; 93005; 96372; 99285; J3486

== ENCOUNTER 2021-08-04 17:23 | Emergency (ER) | payer OTHER, SELFPAY ==
[2021-08-04 17:24] VITALS: BP 173/160; PULSE 136; RESP 14; TEMP 36.9; O2SAT 98; BMI 32.8
--- NOTE | 2021-08-04 17:29 | ED.RN ---
pt pacing and loud in triage. pt yelling. pt will not sit still. pt climbing on chairs. spouse is attempting to control pt.
--- NOTE | 2021-08-04 17:29 | CM.ED ---
SW Note: Referral Source: Collin Calixto from [facility] Referral Reason: Collin did a video interview with patient and advised the patients to bring her to the ED Collin said that he sent patient to the ED for evaluation. Patient is not suicidal but appears to be experiencing psychosis. Collin said that patient is unstable and stated that patient is hysterical and moves around the room quickly. He said that he has seen patient in the past and he has never seen patient at this level. Collin said that patient was seen in ED during June and sent to [facility] and patient was also sent to [facility] in June and just returned from [facility] yesterday. He reports history of post depression and post psychosis. Patient is currently on zyprexa, zoloft and Depakote. He indicated patient appears psychotic. Plan: To be determined Toshia WEBB
--- NOTE | 2021-08-04 17:38 | ED.RN ---
social work with pt in 2nd triage room.
[2021-08-04] MEDS: Ziprasidone IM 20 MG/ML VIAL IM (18:50)
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
--- NOTE | 2021-08-04 18:54 | EX.ED.VIS.PS ---
HPI HPI - Psych History of Present Illness Chief Complaint: Mental Health Narrative Narrative: Patient presenting for evaluation secondary to psychosis. Patient has a underlying history of psychosis, did have a recent hospital admission for this. Since discharge patient has been getting worse. History was obtained by family member. Patient apparently has been having increasing issues with agitation and paranoia. She had all of her medications changed, and apparently is not tolerating them well. Patient was unable to provide any history secondary to her level of agitation and paranoia. [facility] Medical History Bipolar disorder History of psychosis Home Medications divalproex 1,000 mg PO DAILY 08/04/21 [History Last Taken Unknown] olanzapine 25 mg PO DAILY 08/04/21 [History Last Taken Unknown] sertraline 50 mg PO DAILY 08/04/21 [History Last Taken Unknown] Allergy/AdvReac Type Severity Reaction Status Date / Time haloperidol [From Haldol] AdvReac PT UNSURE Verified 08/04/21 17:24 OF REACTION Social History Smoking Status: Never smoker alcohol intake: never substance use type: does not use ROS ROS ED Review of Systems ROS Unobtainable: due to mental condition Psychiatric Psychiatric: Reports other Details: Psychosis and paranoia EXAM Physical Exam Const Vital Signs: 08/04/21 17:24 08/04/21 21:41 08/04/21 22:22 Temperature 98.5 F Temperature Source Temporal Pulse Rate 136 H 82 Respiratory Rate 14 16 16 Blood Pressure 173/160 H 112/59 L Blood Pressure Mean 164 76 Pulse Ox 98 98 Oxygen Delivery Method Room Air Room Air 08/04/21 23:36 Temperature Temperature Source Pulse Rate Respiratory Rate 16 Blood Pressure Blood Pressure Mean Pulse Ox Oxygen Delivery Method Positive well nourished and well developed Constitutional Narrative: Very hyperstimulated patient who is pacing around the room speaking with pressured speech General Appearance ED: well developed HEENT normocephalic and atraumatic Resp normal respiratory effort Cardio Rate: tachycardic Rhythm: regular rhythm GI non-distended Extremity normal to inspection Neuro no sensory deficits noted Sensorium / Orientation: alert Motor Exam: strength 5/5 throughout Psych Psych Narrative: Patient is pacing and hyperstimulated. Patient is exhibiting signs of paranoia. She has no insight and poor judgment Skin Rashes: no rashes MDM MDM MDM Narrative Medical decision making narrative: Patient presented secondary to psychosis. Patient was very clearly paranoid and psychotic upon arrival. Patient was given an initial dose of 20 mg of IM Geodon. Screening work-up was obtained. Patient has unremarkable lab work, valproic acid level was 76. EKG was unremarkable. Patient had continued problems with her psychosis and agitation and was escalating and was given a further dose of 2 mg of IM Ativan. This ultimately did result in the patient calming down. Social work evaluated the patient and agrees that the patient requires admission for psychiatric stabilization and currently are working on placement. Lab Data Labs: Laboratory Results - last 24 hr 08/04/21 08/04/21 08/04/21 20:00 20:00 20:00 WBC 10.4 RBC 4.61 Hgb 13.7 Hct 41.6 MCV 90.2 MCH 29.7 MCHC 32.9 RDW Std Deviation 46.9 H RDW Coeff of Evelin 14.2 Plt Count 290 MPV 10.0 Immature Gran % (Auto) 0.200 Neut % (Auto) 54.3 Lymph % (Auto) 32.4 Thomas % (Auto) 8.4 Eos % (Auto) 4.2 Baso % (Auto) 0.5 Absolute Neuts (auto) 5.6 Absolute Lymphs (auto) 3.36 Nucleated RBC % 0 Sodium 141 Potassium 3.7 Chloride 112 H Carbon Dioxide 24.0 Anion Gap 5 BUN 15 Creatinine 0.46 L Estim Creat Clear Calc 147.93 Est GFR (MDRD) Af Amer 205 Est GFR (MDRD) Non-Af 170 BUN/Creatinine Ratio 32.8 H Glucose 86 Calcium 8.9 Serum , Qual Urine Opiates Screen Urine Methadone Screen Ur Barbiturates Screen Valproic Acid 76 Ur Phencyclidine Scrn Ur Amphetamines Screen U Methamphetamin-MDMA U Benzodiazepines Scrn Urine Cocaine Screen U Cannabinoids Screen Ur Drug Screen Comment Ethyl Alcohol 08/04/21 08/04/21 08/04/21 20:00 20:00 22:22 WBC RBC Hgb Hct MCV MCH MCHC RDW Std Deviation RDW Coeff of Evelin Plt Count MPV Immature Gran % (Auto) Neut % (Auto) Lymph % (Auto) Thomas % (Auto) Eos % (Auto) Baso % (Auto) Absolute Neuts (auto) Absolute Lymphs (auto) Nucleated RBC % Sodium Potassium Chloride Carbon Dioxide Anion Gap BUN Creatinine Estim Creat Clear Calc Est GFR (MDRD) Af Amer Est GFR (MDRD) Non-Af BUN/Creatinine Ratio Glucose Calcium Serum , Qual NEGATIVE Urine Opiates Screen NEGATIVE Urine Methadone Screen NEGATIVE Ur Barbiturates Screen NEGATIVE Valproic Acid Ur Phencyclidine Scrn NEGATIVE Ur Amphetamines Screen NEGATIVE U Methamphetamin-MDMA NEGATIVE U Benzodiazepines Scrn NEGATIVE Urine Cocaine Screen NEGATIVE U Cannabinoids Screen NEGATIVE Ur Drug Screen Comment Ethyl Alcohol 5.0 EKG Initial EKG: Attestation: I personally reviewed and interpreted this EKG as follows: (Sinus rhythm at 76 with some sinus arrhythmia isoelectric ST segments normal T waves normal KS and QTc intervals no evidence of acute ischemia or arrhythmia) Discharge Plan Triage Chief Complaint: Mental Health ED Provider: Luisito Rodriguez Dx/Rx/DC Orders Clinical Impression: Acute psychosis Prescriptions: No Action olanzapine 20 mg tablet,disintegrating 25 mg PO DAILY RF: 0 divalproex 500 mg tablet extended release 24 hr 1,000 mg PO DAILY RF: 0 sertraline 50 mg tablet 50 mg PO DAILY RF: 0 Primary Care Provider: Cory Finn Referrals: Cory Finn MD [Primary Care Provider] -
[2021-08-04 20:09] LABS: Absolute Lymphocyte Count 3.36 X10^3/uL (0.83-4.51); Absolute Neutrophil Count 5.6 X10^3/uL (2.0-7.7); Basophil# 0.05 X10^3/uL; Basophil% 0.5 % (0-1); Eosinophil# 0.44 X10^3/uL; Eosinophils% 4.2 % (0-5); Hematocrit 41.6 % (37-47); Hemoglobin 13.7 g/dL (12.0-15.0); Lymphocyte # 3.36 X10^3/ul (0.83-4.51); Lymphocyte % 32.4 % (19-41); Mean Corp Hgb Conc 32.9 g/dL (32-36); Mean Corpuscular Hgb 29.7 pg (27.0-32.0); Mean Corpuscular Volume 90.2 fL (81-99); Monocyte# 0.87 X10^3/uL; Monocyte% 8.4 % (0-10); NRBC Flagged by Analyzer 0 % (0-5); Neutrophil # 5.62 X10^3/uL (2.7-7.7); Neutrophil % 54.3 % (47-70); Platelet Count 290 K/mm3 (150-450); RBC Distribution Width CV 14.2 % (11.6-14.6); RBC Distribution Width SD 46.9 fl (35.1-43.9); Red Blood Count 4.61 M/mm3 (4.2-5.4); White Blood Count 10.4 K/mm3 (4.4-11.0)
[2021-08-04 20:19] LABS: Internal QC Validated? YES +Cl - CLEAR BKGD; Pregnancy, Serum, hCG Quali. NEGATIVE Negative
[2021-08-04 20:26] LABS: Anion Gap 5 (5-15); BUN 15 mg/dL (7-18); BUN/Creat Ratio 32.8 RATIO (10-20); Calcium,Total 8.9 mg/dL (8.5-10.1); Chloride 112 mmol/L (98-107); Creatinine, Serum 0.46 mg/dL (0.55-1.02); EST Glomerular Filtration Rate 170 mL/min (>60); Est Glom Filt Rate - Afr Amer 205 mL/min (>60); Estimated Creatinine Clearance 147.93 ml/min; Glucose 86 mg/dL (74-106); Potassium 3.7 mmol/L (3.5-5.1); Sodium Level 141 mmol/L (136-145)
--- NOTE | 2021-08-04 20:27 | EKG12_ITS ---
Test Reason : [facility] [place] Blood Pressure : / mmHG Vent. Rate : 076 BPM Atrial Rate : 076 BPM P-R Int : 130 ms QRS Dur : 082 ms QT Int : 386 ms P-R-T Axes : 044 016 009 degrees QTc Int : 434 ms Normal sinus rhythm with sinus arrhythmia Normal ECG Confirmed by WILLIAM ARANDA, MARCOS ([id number]), society editor EVON KHAN ([id number]) on 08/08/2021 11:50:33 AM Referred By: GERARDO Confirmed By:MARCOS THOMAS MD
[2021-08-04] MEDS: LORazepam 2 MG/ML Syringe IM (20:38)
[2021-08-04 20:44] LABS: Valproic Acid (Depakene) Level 76 ug/mL (50-100)
--- NOTE | 2021-08-04 20:51 | CM.ED ---
ROBERTO Note Referral Source: MD Referral Reason: Inpatient psych placement ROBERTO called [facility] They have no female beds till morning after discharge. Myla said that we can send the information for review. [facility]ERTO called [facility] have beds. ROBERTO faxed referral.
[2021-08-04 21:41] VITALS: RESP 16
--- NOTE | 2021-08-04 22:17 | CM.ED ---
Addendum entered by Toshia Mora 08/04/21 22:37: ROBERTO faxed covid and chem labs. Waiting for tox screen. ROBERTO called Luz at [facility] and updated her. Toshia WEBB Original Note: ROBERTO Note ROBERTO called [facility]. No female beds till after discharges tomorrow. ROBERTO called [facility] and spoke to Luz. ROBETRO faxed referral information to Luz. Advised Luz that we are waiting on COVID, chem and tox. Luz was given the phone number for the fire extinguisher charger if additional information is needed. [facility]ERTO [facility] and updated her that patient is still in the ED and waiting on placement. Sent Crisis a referral packet at fax [phone]. Per RN the patient's said that patient did not have good experience at [facility]. Plan: To be determined. Pending acceptance at [facility]. Toshia WEBB
[2021-08-04 22:22] VITALS: BP 112/59; PULSE 82; RESP 16; O2SAT 98
[2021-08-04 23:00] LABS: Amphetamine Urine VISTA NEGATIVE (<1000 ng/mL); Barbiturate Urine VISTA NEGATIVE (< 200 ng/mL); Benzodiazepine Urine VISTA NEGATIVE (< 200 ng/mL); Cocaine Urine VISTA NEGATIVE (< 300 ng/mL); Ecstacy Urine VISTA NEGATIVE (< 500 ng/mL); Methadone Urine VISTA NEGATIVE (< 300 ng/mL); PCP Urine VISTA NEGATIVE (< 25 ng/mL); THC Urine VISTA NEGATIVE (< 50 ng/mL); Vista UDS pH Range 6
[2021-08-04 23:36] VITALS: RESP 16
[2021-08-04] MEDS: Divalproex Sodium 250 MG Tablet 1000 MG PO (23:36)
[2021-08-04] MEDS: OLANZapine 10 MG Tablet 25 MG PO (23:36)
[2021-08-05 02:15] VITALS: BP 102/88; PULSE 79; RESP 16; O2SAT 99
--- NOTE | 2021-08-05 03:19 | NURSING ---
ACCEPTED TO [facility] AND THEY ARE SENDING [facility] TO [employer] PATIENT. EXPECTED TO ARRIVE AT 4AM
[2021-08-05 03:21] VITALS: RESP 16
--- NOTE | 2021-08-05 03:38 | ED.RN ---
attempted to call report to [facility]. rn refused at this time. this rn was told to call back when rn gets paperwork.
== END 2021-08-05 04:32 ==
LOC: ED 19:17
PROVIDERS: Emergency Provider Emergency Medicine; PCP Family Medicine
DX: F23 Brief psychotic disorder (principal); F31.9 Bipolar disorder, unspecified; Z79.899 Other long term (current) drug therapy
CPT/HCPCS: 80048; 80164; 80307; 82077; 84703; 85025; 87426; 93005; 96372; 99285; J3486